=== PATIENT | female | born 1960 | race Caucasian/White ===

== ENCOUNTER 2017-12-06 07:53 | Day surgery (SDC) | payer OTHER ==
[~2017-12-06] VITALS: Ht 152.4 cm; Wt 44.1 kg
[2017-12-06] VITALS (9 sets, daily range): BP systolic 108–136; BP diastolic 63–88; PULSE 68–85; RESP 18; TEMP 97.8–97.9; O2SAT 91–95
[2017-12-06] MEDS ORDERED: RANI150C PO (08:21)
[2017-12-06] MEDS ORDERED: GABA600T PO (08:21)
[2017-12-06] MEDS ORDERED: LEVO50TA4 PO (08:21)
[2017-12-06] MEDS ORDERED: HYDR-3583 PO (08:21)
[2017-12-06] MEDS ORDERED: SODIUM CHLORIDE 0.9% 1000 ML IV SCH (08:45)
[2017-12-06] MEDS ORDERED: MIDAZOLAM HCL 2 MG/2 ML VIAL ONE ×2 (09:11→10:12)
[2017-12-06] MEDS ORDERED: LIDOCAINE 1%/EPINEPHrine 1:100,000 SOLN 50 ML VIAL OTHER ONE (10:00)
--- NOTE | 2017-12-06 10:38 | PD.RAD ---
Post CT Procedure Prog Note Pre Procedure Diagnosis: (1) Liver metastases Post Procedure Diagnosis: (1) Liver metastases Procedure Date: Dec 06, 2017 Supervising Radiologist: Marquez Coleman Proceduralist/Assist: Pallavi salazar Estimated blood loss: none Anesthesia: Conscious Sedation Plan of Activity Patient to Unit: [facility] Patient Condition: Good See PACS Report for procedural detail/treatment Marquez Coleman MD Dec 06, 2017 10:38
--- NOTE | 2017-12-06 14:57 | RADRPT ---
EXAM DATE/TIME: 12/06/2017 10:08 [facility] COMPARISON: No previous studies available for comparison. INDICATIONS : Liver mass. SEDATION TIME: 30 minutes BIOPSY SITE: Right lateral MEDICATION(S): 1.) 3 mg midazolam (Versed) IV 2.) 150 mcg fentanyl (Sublimaze) IV DEVICE(S): 1.) 20 gauge Temno core biopsy needle 6cm MEDICAL HISTORY : Carcinoma, glottic. Carcinoma, lung. SURGICAL HISTORY : Tubal ligation. ENCOUNTER: Initial ACUITY: 1 day PAIN SCORE: 0/10 LOCATION: Right lateral A total of two core specimen(s) were obtained and sent to the laboratory for pathologic evaluation. PROCEDURE: 1. CT guided liver biopsy. 2. Conscious sedation with continuous EKG and oximetry monitoring. Prior to the procedure informed consent was obtained. Any appropriate prior imaging studies were rev iewed. Using automated exposure control and adjustment of the mA and/or kV according to patient size, radiat ion dose was kept as low as reasonably achievable to obtain optimal diagnostic quality images. DICOM format image data is available electronically for review and comparison. The site was prepped in a sterile fashion. Full sterile technique was used, including cap, mask, michelle rile gloves and gown and a large sterile sheet. Hand hygiene and 2% chlorhexidine and/or betadine/al cohol prep was utilized per protocol for cutaneous antisepsis. The skin and subcutaneous tissues wer e infiltrated with local anesthetic solution. With CT guidance the previously identified target was localized. Biopsy was performed using the presc ribed needle as above. Adequate hemostasis was obtained with compression at the puncture site. Follow-up CT scan reveals no hemorrhage. The patient tolerated the procedure well and there were no complications. The patient was returned to the Radiology Outpatient Unit in stable condition. CONCLUSION: Uncomplicated CT guided biopsy of central mass in the liver. Marquez Coleman MD on December 06, 2017 at 14:54 Board Certified Radiologist. This report was verified electronically.
== END 2017-12-06 14:45 | disposition home or self-care (01) ==
LOC: HRAD 07:53 → HRIP 07:56 → HRAD 14:45
PROVIDERS: ATTEND Internal Medicine Hematology
DX: R16.0 Hepatomegaly, not elsewhere classified (principal); Z85.118 Personal history of other malignant neoplasm of bronchus and lung; C78.7 Secondary malignant neoplasm of liver and intrahepatic bile duct
CPT/HCPCS: 47000; 77012; 88307; 99152; 99153; J2250; J3010; J7030

== ENCOUNTER 2017-12-20 07:41 | Day surgery (SDC) | payer OTHER ==
[~2017-12-20] VITALS: Ht 152.4 cm; Wt 43.2 kg
[2017-12-20] VITALS (7 sets, daily range): BP systolic 106–148; BP diastolic 72–95; PULSE 67–85; RESP 16–18; TEMP 98–98.3; O2SAT 91–94
[~2017-12-20 07:41] MED LIST: GABA600T PO; HYDR-3583 PO; LEVO50TA4 PO; RANI150C PO
[2017-12-20] MEDS ORDERED: LIDOCAINE HCL 1% 10 ML VIAL OTHER ONE (07:42)
[2017-12-20] MEDS ORDERED: fentaNYL CITRATE 250 MCG/5 ML AMP ONE (08:35)
[2017-12-20] MEDS ORDERED: MIDAZOLAM HCL 5 MG/5 ML VIAL ONE (08:36)
[2017-12-20] MEDS ORDERED: SODIUM CHLOR 0.9% 1000 ML IV SCH (09:00)
--- NOTE | 2017-12-20 10:05 | PD.RAD ---
Post CT Procedure Prog Note Pre Procedure Diagnosis: (1) Liver mass Post Procedure Diagnosis: (1) Liver mass Procedure Date: December 20, 2017 Supervising Radiologist: Aftab Vincent Estimated blood loss: minimal. Anesthesia: Conscious Sedation Plan of Activity Patient to Unit: [facility] Patient Condition: Good See PACS Report for procedural detail/treatment Biopsy Imaging Guidance: CT Side: Right Biopsy Procedure: Liver Site: right lobe liver mass. Specimen: Core Biopsy Plan to [facility] then discharge in 4 hours if no problems. Aftab Vincent MD December 20, 2017 10:05
[2017-12-20] MEDS ORDERED: HYDROmorphone HCL 2 MG TAB PO PRN (10:15)
--- NOTE | 2017-12-20 10:18 | RADRPT ---
EXAM DATE/TIME: 12/20/2017 09:32 [facility] COMPARISON: CT NEEDLE BIOPSY LIVER, December 06, 2017, 10:08. INDICATIONS : Right lobe liver mass SEDATION TIME: 40 minutes BIOPSY SITE: liver MEDICATION(S): 1.) 2.5 mg midazolam (Versed) IV 2.) 125 mcg fentanyl (Sublimaze) IV DEVICE(S): 1.) 18 gauge Temno core biopsy needle 2.) 17 gauge Moses blunt needle MEDICAL HISTORY : Carcinoma, lung. throat cancer SURGICAL HISTORY : Lobectomy. Gastric bypass. ENCOUNTER: Initial ACUITY: 1 day PAIN SCORE: 0/10 LOCATION: liver A total of eight core specimen(s) were obtained and sent to the laboratory for pathologic evaluation. PROCEDURE: 1. CT guided liver biopsy. 2. Conscious sedation with continuous EKG and oximetry monitoring. 3. EKG and oximetry remained stable throughout the procedure. Prior to the procedure informed consent was obtained. Any appropriate prior imaging studies were rev iewed. Using automated exposure control and adjustment of the mA and/or kV according to patient size, radiat ion dose was kept as low as reasonably achievable to obtain optimal diagnostic quality images. DICOM format image data is available electronically for review and comparison. The site was prepped in a sterile fashion. Full sterile technique was used, including cap, mask, michelle rile gloves and gown and a large sterile sheet. Hand hygiene and 2% chlorhexidine and/or betadine/al cohol prep was utilized per protocol for cutaneous antisepsis. The skin and subcutaneous tissues wer e infiltrated with local anesthetic solution. With CT guidance the right lobe liver mass was localized. Biopsy was performed using the prescribed n eedle as above. The triage licensed practical nurse was present and reports necrosis in portions of the sample as w ell as areas which appear cellular. Adequate hemostasis was obtained with compression at the puncture site. Follow-up CT scan reveals no hemorrhage or acute abnormality. The patient tolerated the procedure well and there were no complications. The patient was returned to the Radiology Outpatient Unit in stable condition. CONCLUSION: Uncomplicated CT guided biopsy of the right lobe of the liver. Aftab Vincent MD on December 20, 2017 at 10:13 Board Certified Radiologist. This report was verified electronically.
== END 2017-12-20 13:00 | disposition home or self-care (01) ==
LOC: HRAD 07:41 → HRIP 07:44 → HRAD 13:00
PROVIDERS: ATTEND Internal Medicine Hematology
DX: C22.9 Malignant neoplasm of liver, not specified as primary or secondary (principal); C32.0 Malignant neoplasm of glottis; Z98.84 Bariatric surgery status; D50.9 Iron deficiency anemia, unspecified
CPT/HCPCS: 47000; 77012; 88307; 88333; 88341; 88342; 99152; 99153; J2250; J3010; J7030